=== PATIENT | male | born 2000 | race Hispanic/Latino ===

== ENCOUNTER 2023-02-26 19:46 | Emergency (ER) | payer OTHER, SELFPAY ==
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
[2023-02-26] MEDS ORDERED: CEFAZOLIN SODIUM 1 GM/VIAL ONE (21:57)
[2023-02-26] MEDS ORDERED: NA CHLORIDE 0.9% 100 ML ONE (21:57)
[2023-02-26] MEDS ORDERED: TDAP (DIPHTH,PERTUSS(ACELL),TET VAC) 0.5 ML VIAL IMVAC ONE (22:00)
[2023-02-26 22:50] VITALS: TEMP 98.1; O2SAT 98
[2023-02-26 22:51] VITALS: BP 142/65
== END 2023-02-26 22:45 | disposition home or self-care (01) ==
LOC: ER 19:46
DX: S92.352A Displaced fracture of fifth metatarsal bone, left foot, initial encounter for closed fracture (principal); S62.142A Displaced fracture of body of hamate [unciform] bone, left wrist, initial encounter for closed fracture; Z23 Encounter for immunization
CPT/HCPCS: 90471; 96365; 99284; J0690